=== PATIENT | male | born 1955 | race African-American/Black ===

== ENCOUNTER 2018-06-27 14:59 | Emergency (ER) | payer OTHER ==
[~2018-06-27] VITALS: Ht 180.3 cm; Wt 72.7 kg
[~2018-06-27 14:59] MED LIST: ASPI81TA85 PO; CENTTAB PO; CEPA3LOZ PO; CINN500C9 PO; GABA300C2 PO; HAWT150C PO; IBUP80TA PO; PERC5TAB PO; SIMV20TA2 PO; ULTR50TA PO; VITACAP33 PO; [UNRECOGNIZED DRUG - OTHER] PO
[2018-06-27] MEDS ORDERED: LISI20TA3 PO (15:16)
[2018-06-27] MEDS ORDERED: FERR325T3 PO (15:17)
[2018-06-27] MEDS ORDERED: KETOROLAC 30 MG/ML VIAL (J1885) IM ONE (19:00)
[2018-06-27 19:32] LABS: BASO # 0.1 10^3/uL (0.0-0.2); BASO % 0.5 % (0.0-1.0); EOS % 0.2 % (0.0-3.0); HEMATOCRIT 44.6 % (42.0-52.0); HEMOGLOBIN 14.8 g/dl (13.5-17.5); LYMPH # 3.6 10^3/uL (1.5-4.5); LYMPH % 26.2 % (24.0-44.0); MEAN CORPUSCULAR HEMOGLOBIN 30.5 pg (27.0-33.0); MEAN CORPUSCULAR HGB CONC 33.2 g/dl (32.0-36.5); MONO # 0.9 10^3/uL (0.0-0.8); MONO % 6.6 % (0.0-5.0); NEUTROPHILS # 9.1 10^3/uL (1.8-7.7); NEUTROPHILS % 66.2 % (36.0-66.0); PLATELET COUNT, AUTOMATED 238 10^3/uL (150-450); RED BLOOD COUNT 4.85 10^6/uL (4.30-6.10); WHITE BLOOD COUNT 13.7 10^3/uL (4.0-10.0)
[2018-06-27 19:55] LABS: ALT/SGPT 42 U/L (12-78); BILIRUBIN,DIRECT 0.2 MG/DL (0.0-0.2); BILIRUBIN,TOTAL 0.7 MG/DL (0.2-1.0); BLOOD UREA NITROGEN 21 MG/DL (7-18); CALCIUM LEVEL 9.4 MG/DL (8.8-10.2); CARBON DIOXIDE LEVEL 30 MEQ/L (21-32); CHLORIDE LEVEL 106 MEQ/L (98-107); CREATININE FOR GFR 1.08 MG/DL (0.70-1.30); GLOMERULAR FILTRATION RATE > 60.0 (>49); GLUCOSE, FASTING 97 MG/DL (70-100); POTASSIUM SERUM 4.4 MEQ/L (3.5-5.1); SODIUM LEVEL 143 MEQ/L (136-145)
[2018-06-27] MEDS ORDERED: hydroCHLOROthiazide 25 MG TAB PO ONE (21:00)
[2018-06-27] MEDS ORDERED: NS 1,000 ML IV ONE (21:00)
[2018-06-27] MEDS ORDERED: LISINOPRIL 20 MG TAB PO ONE (21:00)
--- NOTE | 2018-06-27 21:08 | REPVR ---
EXAM: MR Lumbar Spine Without Contrast. EXAM DATE/TIME: 06/27/2018 6:54 PM CLINICAL HISTORY: 63 years old, male; Pain; Lumbago with sciatica; Bilateral; Additional info: Back pain, saddle anesthesia TECHNIQUE: Imaging protocol: Multiplanar magnetic resonance images of the lumbar spine without intravenous contrast. COMPARISON: CR Spine, Lumbosacral, partial 01/07/2013 1:58 PM FINDINGS: Vertebrae: Normal alignment. Marrow: This loss marrow space signal in the lumbar and low thoracic vertebrae on T1-weighted imaging. Findings suggests changes related to chronic anemia or other myeloproliferative abnormality. L1-L2: There is a mild central spinal stenosis at L1-2 secondary to diffuse annular bulging and congenital short pedicles. L2-L3: There is a mild central spinal stenosis at L2-3 secondary to diffuse annular bulging and congenitally short pedicles. L3-L4: There is a mild spinal stenosis at L3-4 secondary to diffuse annular bulging, thickened ligamentum flavum, congenitally short pedicles and facet joint arthropathy. Lateral aspects of the bulging annulus touch the exiting L3 nerve roots far laterally. L4-L5: There is a diffuse annular bulge at L4-5 with a right posterior disc extruded disc herniation secondary to a right paracentral transverse tear in the annulus. Herniated disc extends 5 mm blue superior endplate of L5. This is resulting in asymmetric compression of the right side of the thecal sac with posterior displacement of the traversing nerve roots. Lateral aspects of the bulging annulus touch the exiting L4 nerve roots far laterally. Bilateral facet arthropathy. L5-S1: There is disc desiccation and loss of disc height. There is a diffusely bulging annulus at L5-S1 with an extruded left paracentral disc herniation which minimally impinges on the left side of the thecal sac and medial aspect of the left and right S1 nerve roots as they exit from the thecal sac. Lateral aspect of the bulging annulus touches the L5 exiting nerve roots far laterally. Bilateral facet arthropathy. Spinal cord: Normal signal. No cord compression. Soft tissues: Unremarkable. IMPRESSION: 1. There is loss marrow space signal in the lumbar and low thoracic vertebrae on T1-weighted imaging. Findings suggests changes related to chronic anemia or other myeloproliferative abnormality. 2. Diffuse annular bulges at L1-2, L2-3, and L3-4 resulting in mild central spinal stenoses. 3. Bulging annulus at L4-5 with right posterior extruded disc herniation resulting in posterior displacement of the traversing nerve roots. Lateral aspects of the bulging annulus touches the exiting L4 nerve roots far laterally. 4. Bulging annulus L5-S1 with an inferiorly extruded left paracentral disc herniation impinging on both right and left medial aspect of the S1 nerve roots as it thecal sac. Lateral component involving annulus touches the L5 exiting nerve root far laterally. Electronically signed by: Clarence Milligan On 06/27/2018 21:07:53 PM
[2018-06-27 21:10] VITALS: BP 139/74
[2018-06-27] MEDS ORDERED: PRED20TA PO (21:35)
[2018-06-27] MEDS ORDERED: ROBA500T PO (21:38)
--- NOTE | 2018-06-28 13:46 | ED PDOC ---
Post-Departure Follow-Up ft jayde vazquez faxed mri ls spine for fu Santy Shaw MD June 28, 2018 13:46
== END 2018-06-27 22:12 | disposition home or self-care (01) ==
LOC: M ED 14:59
DX: M51.26 Other intervertebral disc displacement, lumbar region (principal); M54.16 Radiculopathy, lumbar region; M48.061 Spinal stenosis, lumbar region without neurogenic claudication; E86.0 Dehydration; I10 Essential (primary) hypertension; E78.5 Hyperlipidemia, unspecified; Z86.19 Personal history of other infectious and parasitic diseases; Z79.899 Other long term (current) drug therapy; Z79.82 Long term (current) use of aspirin; F17.210 Nicotine dependence, cigarettes, uncomplicated
CPT/HCPCS: 36415; 72148; 80048; 80076; 85025; 96372; 99284; J1885

== ENCOUNTER → 2019-08-12 | Outpatient (CLI) | payer OTHER ==
[~2019-08-12] MED LIST changes: +CINN500C12 PO; +FERR325T3 PO; +IBUP200C25 PO; +LISI20TA20 PO; +MULTCAP PO; +PRED20TA PO; +ROBA500T PO; +SIMV40TA20 PO; +VITAMIN C WITH ZINC PO
== END ==
LOC: M LABSMTC 09:22
PROVIDERS: ATTEND Internal Medicine Gastroenterology
DX: Z11.59 Encounter for screening for other viral diseases (principal); Z03.89 Encounter for observation for other suspected diseases and conditions ruled out; Z01.818 Encounter for other preprocedural examination
CPT/HCPCS: C9803; U0003

== ENCOUNTER 2019-08-15 08:10 | Day surgery (SDC) | payer OTHER ==
[~2019-08-15] VITALS: Ht 182.9 cm; Wt 72.6 kg
[~2019-08-15 08:10] MED LIST changes: +ASPI81TA86 PO; +propofoL 200 MG/20 ML VIAL As Ordered ONE
--- NOTE | 2019-08-15 10:08 | ROOR ---
Patient Name: Delta Bianchi Procedure Date: 08/15/2019 9:22 AM Date of : 1955 Age: 64 Room: [facility] Gender: Male Note Status: Finalized Procedure: Colonoscopy Indications: Screening for colorectal malignant neoplasm Providers: Kolby Fair MD Referring MD: LIA MONTOYA MD Requesting Provider: Medicines: Monitored Anesthesia Care Complications: No immediate complications. Procedure: Pre-Anesthesia Assessment: - Prior to the procedure, a History and Physical was performed, and patient medications and allergies were reviewed. The patient is competent. The risks and benefits of the procedure and the sedation options and risks were discussed with the patient. All questions were answered and informed consent was obtained. Patient identification and proposed procedure were verified by the physician, the nurse and the anesthesiologist in the procedure room. Mental Status Examination: alert and oriented. Airway Examination: normal oropharyngeal airway and neck mobility. Respiratory Examination: clear to auscultation. CV Examination: normal. Prophylactic Antibiotics: The patient does not require prophylactic antibiotics. Prior Anticoagulants: The patient has taken no previous anticoagulant or antiplatelet agents. ASA Grade Assessment: II - A patient with mild systemic disease. After reviewing the risks and benefits, the patient was deemed in satisfactory condition to undergo the procedure. The anesthesia plan was to use monitored anesthesia care (MAC). Immediately prior to administration of medications, the patient was re-assessed for adequacy to receive sedatives. The heart rate, respiratory rate, oxygen saturations, blood pressure, adequacy of pulmonary ventilation, and response to care were monitored throughout the procedure. The physical status of the patient was re-assessed after the procedure. The Colonoscope was introduced through the anus and advanced to the terminal ileum, with identification of the appendiceal orifice and IC valve. The colonoscopy was performed without difficulty. The patient tolerated the procedure well. The quality of the bowel preparation was fair. The terminal ileum, ileocecal valve, appendiceal orifice, and rectum were photographed. Scope insertion time was 4 minutes. Scope withdrawal time was 9 minutes. The total duration of the procedure was 14 minutes. Findings: The perianal and digital rectal examinations were normal. The terminal ileum appeared normal. Multiple small and large-mouthed diverticula were found from sigmoid to ascending colon. There was narrowing of the colon in association with the diverticular opening. Erythema was seen in association with the diverticular opening. There was no evidence of diverticular bleeding. A 3 mm polyp was found in the descending colon. The polyp was hyperplastic. The polyp was removed with a cold biopsy forceps. Resection and retrieval were complete. Verification of patient identification for the specimen was done by the physician and nurse using the patient's name, date and medical record number. Estimated blood loss was minimal. Non-bleeding external and internal hemorrhoids were found during retroflexion. The hemorrhoids were medium-sized. Impression: - Preparation of the colon was fair. - The examined portion of the ileum was normal. - Severe diverticulosis from sigmoid to ascending colon. There was narrowing of the colon in association with the diverticular opening. Erythema was seen in association with the diverticular opening. There was no evidence of diverticular bleeding. - One 3 mm polyp in the descending colon, removed with a cold biopsy forceps. Resected and retrieved. - Non-bleeding external and internal hemorrhoids. Recommendation: - Patient has a contact number available for emergencies. The signs and symptoms of potential delayed complications were discussed with the patient. Return to normal activities tomorrow. Written discharge instructions were provided to the patient. - High fiber diet. - Continue present medications. - Colace capsule(s) orally 100 mg BID. - Senokot-S 2 tablets PO q HS. - Await pathology results. - Repeat colonoscopy in 5-10 years for surveillance based on pathology results. - Monitor for constipation, abdominal pain or fever, due to severe diverticulosis. - Telephone GI clinic for pathology results in 2 weeks. - Return to primary care physician. Kolby Fair MD Kolby Fair MD 08/15/2019 10:07:57 AM Electronically signed by Kolby Fair MD Number of Addenda: 0 Note Initiated On: 08/15/2019 9:22 AM Estimated Blood Loss: Estimated blood loss was minimal.
[2019-08-15 10:20] VITALS: BP 106/72
== END 2019-08-15 10:32 | disposition home or self-care (01) ==
LOC: M OPP 08:10
PROVIDERS: ATTEND Internal Medicine Gastroenterology
DX: Z12.11 Encounter for screening for malignant neoplasm of colon (principal); K63.5 Polyp of colon; K57.30 Diverticulosis of large intestine without perforation or abscess without bleeding; K64.8 Other hemorrhoids; I10 Essential (primary) hypertension; Z79.82 Long term (current) use of aspirin; Z79.899 Other long term (current) drug therapy

== ENCOUNTER → 2022-02-01 | Outpatient (CLI) | payer OTHER ==
[~2022-02-01] MED LIST changes: -LISI20TA20 PO; +LISI20TA37 PO; -propofoL 200 MG/20 ML VIAL As Ordered ONE
== END ==
LOC: M RAD 15:46
PROVIDERS: ATTEND Internal Medicine
DX: Z12.2 Encounter for screening for malignant neoplasm of respiratory organs (principal); F17.210 Nicotine dependence, cigarettes, uncomplicated

== ENCOUNTER → 2022-12-22 | Outpatient (CLI) | payer OTHER | LOC: M PLAIMG 07:58 | PROVIDERS: ATTEND Nurse Practitioner Family | DX: J43.9 Emphysema, unspecified (principal); F17.210 Nicotine dependence, cigarettes, uncomplicated ==

== ENCOUNTER → 2023-02-07 | Outpatient (CLI) | payer MEDICARE | LOC: M RAD 06:30 | PROVIDERS: ATTEND Internal Medicine | DX: Z12.2 Encounter for screening for malignant neoplasm of respiratory organs (principal); F17.210 Nicotine dependence, cigarettes, uncomplicated ==

== ENCOUNTER 2023-08-22 05:57 | Day surgery (SDC) | payer MEDICARE, OTHER ==
[~2023-08-22] VITALS: Ht 180.3 cm; Wt 73.4 kg
[~2023-08-22 05:57] MED LIST changes: +ECOT81TA5 PO; +GABA-282 PO; +GENTLE SORB IRON; +MULTTAB61 PO
[2023-08-22] MEDS: LR 1,000 ML IV SCH (06:45)
[2023-08-22] MEDS ORDERED: propofoL 200 MG/20 ML VIAL As Ordered ONE (07:18)
[2023-08-22] MEDS ORDERED: LIDOCAINE 2% 100MG/5ML SDV (FOR ANES.) As Ordered ONE (07:18)
[2023-08-22] MEDS ORDERED: MIDAZOLAM INJ 2MG/2ML VIAL As Ordered ONE (07:18)
[2023-08-22] MEDS ORDERED: fentaNYL 250 MCG/5 ML INJECTION As Ordered ONE (07:18)
[2023-08-22] MEDS ORDERED: ROCURONIUM BROMIDE 50MG/5ML VIAL As Ordered ONE (07:20)
[2023-08-22] MEDS: ceFAZolin SOD 2 GM in IV 1 EA IV ONE (07:44)
[2023-08-22] MEDS ORDERED: ACETAMINOPHEN 1000MG 100ML IV BAG As Ordered ONE (08:38)
[2023-08-22] MEDS ORDERED: SUGAMMADEX SODIUM 500 MG/5 ML VIAL (BRIDION) As Ordered ONE (08:40)
[2023-08-22] MEDS ORDERED: KETOROLAC 60MG 2ML VIAL As Ordered ONE (08:42)
[2023-08-22] MEDS ORDERED: ONDANSETRON 4MG 2ML VIAL As Ordered ONE (08:42)
[2023-08-22] MEDS ORDERED: METOCLOPRAMIDE INJ 10MG/2ML VIAL As Ordered ONE (08:55)
[2023-08-22] MEDS ORDERED: ONDANSETRON 4MG 2ML VIAL IV PRN (09:05)
[2023-08-22] MEDS ORDERED: LR 1,000 ML IV SCH (09:05)
[2023-08-22] MEDS ORDERED: fentaNYL 100 MCG/2 ML INJECTION IV PRN (09:05)
[2023-08-22 10:50] VITALS: BP 140/85; TEMP 96.8; O2SAT 98
[2023-08-22] MEDS ORDERED: NORCO, ANEXSIA 5/325MG TABLET (HYDROcodone/ACETAMINOPHEN) PO PRN ×2 (10:50)
[2023-08-22] MEDS ORDERED: NS 1,000 ML IV SCH (10:50)
== END 2023-08-22 11:05 | disposition home or self-care (01) ==
LOC: M SDC 05:57
PROVIDERS: ATTEND Surgery
DX: K40.90 Unilateral inguinal hernia, without obstruction or gangrene, not specified as recurrent (principal); I10 Essential (primary) hypertension; E78.00 Pure hypercholesterolemia, unspecified; K58.9 Irritable bowel syndrome, unspecified; D64.9 Anemia, unspecified; Z79.899 Other long term (current) drug therapy; F17.210 Nicotine dependence, cigarettes, uncomplicated; Z90.49 Acquired absence of other specified parts of digestive tract
CPT/HCPCS: 49650; C1781; J0131; J0665; J0690; J1100; J1885; J2250; J2405; J3010

== ENCOUNTER → 2024-08-14 | Outpatient (CLI) | payer MEDICARE, OTHER ==
[~2024-08-14] MED LIST changes: +GABA-1172 PO; -GABA-282 PO
== END ==
LOC: M RAD 09:04
PROVIDERS: ATTEND Internal Medicine
DX: Z87.891 Personal history of nicotine dependence (principal)